=== PATIENT | female | born 2000 | race Caucasian/White ===

== ENCOUNTER 2021-05-20 08:09 | Day surgery (SDC) | payer MEDICAID ==
[~2021-05-20] VITALS: Ht 182.9 cm; Wt 72.7 kg
[2021-05-20 08:20] VITALS: BP 141/88
[2021-05-20] MEDS ORDERED: MIDAZolam 1 MG/ML 5ML VIAL ONE (08:26)
[2021-05-20] MEDS ORDERED: fentaNYL/PF 50MCG/1 ML 2ML syringe ONE (08:26)
[2021-05-20] MEDS ORDERED: BIRTH CONTROL PILL PO (08:28)
[2021-05-20 10:09] VITALS: BP 111/61
[2021-05-20 10:19] VITALS: BP 124/71
[2021-05-20 10:29] VITALS: BP 106/58
[2021-05-20 10:39] VITALS: BP 112/64
== END 2021-05-20 10:53 | disposition home or self-care (01) ==
LOC: GI LAB 08:09
PROVIDERS: ATTEND Internal Medicine Gastroenterology
DX: K52.9 Noninfective gastroenteritis and colitis, unspecified (principal); K92.1 Melena; K64.8 Other hemorrhoids; K63.5 Polyp of colon; Z88.0 Allergy status to penicillin
CPT/HCPCS: 45380; 45385; 99152; 99153; C1773; J2250; J3010; J7040; Z7512; A4620